=== PATIENT | male | born 1990 | race African-American/Black ===

== ENCOUNTER 2016-06-22 21:22 | Emergency (ER) | payer MEDICAID ==
[~2016-06-22] VITALS: Ht 177.8 cm; Wt 81.8 kg
[~2016-06-22 21:22] MED LIST: EXCEES; NO
[2016-06-22 22:05] VITALS: BP 132/85
[2016-06-22] MEDS ORDERED: OxyCODONE HCL/ACETAMINOPHEN 5-325 MG TABLET PO ONE (22:45)
== END 2016-06-23 00:29 | disposition home or self-care (01) ==
LOC: EMS 21:23
DX: S62.632A Displaced fracture of distal phalanx of right middle finger, initial encounter for closed fracture (principal); S82.832A Other fracture of upper and lower end of left fibula, initial encounter for closed fracture; S13.9XXA Sprain of joints and ligaments of unspecified parts of neck, initial encounter; S09.90XA Unspecified injury of head, initial encounter; J45.909 Unspecified asthma, uncomplicated; F17.210 Nicotine dependence, cigarettes, uncomplicated; Y04.2XXA Assault by strike against or bumped into by another person, initial encounter; Y93.89 Activity, other specified; Y92.89 Other specified places as the place of occurrence of the external cause; Y99.8 Other external cause status
CPT/HCPCS: 29515; 70450; 72125; 99284